=== PATIENT | female | born 1960 | race American Indian/Alaskan Native ===

== ENCOUNTER 2020-11-07 14:09 | Outpatient (CLI) | payer BC | END 2020-11-07 14:10 | disposition home or self-care (01) | LOC: SPVWC 14:09 | PROVIDERS: ATTEND Surgery | DX: Z12.31 Encounter for screening mammogram for malignant neoplasm of breast (principal) | CPT/HCPCS: 77067 ==

== ENCOUNTER 2021-11-15 14:56 | Outpatient (CLI) | payer BC | END 2021-11-15 14:57 | disposition home or self-care (01) | LOC: MAMMO 14:56 | PROVIDERS: ATTEND Surgery | DX: Z12.31 Encounter for screening mammogram for malignant neoplasm of breast (principal) | CPT/HCPCS: 77067 ==